=== PATIENT | male | born 1960 | race Caucasian/White ===

== ENCOUNTER → 2022-03-03 | Outpatient (CLI) | payer OTHER ==
--- NOTE | 2022-03-03 16:08 | RAD ---
EXAMINATION: XR SHOULDER_LEFT 2+ VIEWS CLINICAL HISTORY: Left shoulder pain since injury in November. TECHNIQUE: XR SHOULDER_LEFT 2+ VIEWS Number of Images/Views: 3 COMPARISON: None FINDINGS: Glenohumeral joint alignment maintained. Mild to moderate hypertrophic acromioclavicular degenerative changes. No acute fracture. IMPRESSION: [id number] acromioclavicular degenerative changes. Electronically signed by: Vicente Mendez DO (03/03/2022 4:05 PM) [id number]
== END ==
LOC: RAD 15:25
PROVIDERS: ATTEND Nurse Practitioner Family
DX: S49.92XA Unspecified injury of left shoulder and upper arm, initial encounter (principal); M19.012 Primary osteoarthritis, left shoulder; X58.XXXA Exposure to other specified factors, initial encounter; Y93.89 Activity, other specified; Y92.89 Other specified places as the place of occurrence of the external cause; Y99.8 Other external cause status
CPT/HCPCS: 73030